=== PATIENT | female | born 1935 | race Two or more races ===

== ENCOUNTER 2017-09-27 19:42 | Inpatient (IN) | payer MEDICARE, MEDICAID ==
--- NOTE | 2017-09-27 22:32 | ED Physician Chart ---
ED Chief Complaint/HPI - Patient Information Date Seen:: 09/27/17 Time Seen:: 21:00 Chief Complaint:: urinary infection History of Present Illness:: location: general quality: urinary infection severity: mild, mod duration; since 09/15 context: [facility] pt with history of urinary infection since 12 days ago. just finished course of nitrofurantoin and reports persistent symptoms. today pt reports persistent dysuria and some lower abdominal discomfort associated with dysuria. when she is not urinating pt says she does not have any abdominal pain. no fever. pt assessed by Dr. Flores at [facility] and based on persistent symptoms in elderly female who may not be able to mount typical immune response, PCP made decision to send pt with persistent symptoms for medical screening exam. on arrival pt with stable vital signs, no tachycardia. on arrival pt with mild intermittent cough observed by physician during exam. pt does not complaint of chest pain or vomiting, or diarrhea. medics transporting the patient report stable vital signs. pt is alert to name and symptoms. pt reports dysuria as only complaint. earlier in the day pt had reported abdominal pain, now says abdominal pain is gone. no flank pain reported. mod factors: none assoc s/s: none hx from [facility] RN, Medic, Dr. Flores. Allergies:: Allergies Allergy/AdvReac Type Severity Reaction Status Date / Time No Known Allergies Allergy Verified 09/27/17 20:34 Vitals:: Vital Signs - 8 hr 09/27/17 19:45 Temp 98.2 F HR 59 RR 18 BP 113/52 O2 Sat % 97 Historian:: Patient, EMS, Other Review:: Nurse's Note Reviewed, EMS run form Reviewed ED Review of Systems - Review of Systems General/Constitutional: No fever, No chills, No diaphoresis Skin: No rash ENT: No nasal drainage Neck: No stiffness Cardio Vascular: No edema Pulmonary: Cough, No wheezing GI: No nausea, No vomiting G/U: Dysuria Molder Apprentice: No abnormal vaginal bleed Hematopoietic: No lymphadenopathy Allergic/Immuno: No angioedema Neurological: No seizure ED Past Medical History - Past Medical History Past Medical History: HTN, DM, CAD, Other (osteoporosis, parkinsons, constipation) Family History: None Social History: Non Smoker, No Alcohol, No Drug Use, , Care Facility Surgical History: None Psychiatricy History: Dementia Medication: Reviewed Family Medical History - Family Member Mother History Unknown: Yes Ethnicity: ED Physical Exam - Physical Examination General/Constitutional: Awake, Alert, No distress (at baseline per medics pt is oriented to name and symptoms only, samoan speaking only.), Non-toxic appearing Head: Atraumatic Eyes: Lids, conjuctiva normal, PERRL, EOMI Skin: Nl inspection ENMT: External ears, nose nl Neck: Nontender, No nuchal rigidity Respiratory: Nl effort/Exclusion, Clear to Auscultation, No Wheeze/Rhonchi/ Rales (crackles bilateral lung base, pt with audible cough on arrival to ER. large airway sounds transmitted to periphery with basilar rales. will obtain CXR) Cardio Vascular: RRR, No murmur, gallop, rubs, NL S1 S2 GI: No tenderness/rebounding/guarding, Normal BS's, Nondistended : No CVA tenderness Extremities: No tenderness or effusion, No edema Neuro/Psych: Normal sensory exam, Normal motor strength, No focal deficits Misc: Normal back, No paraspinal tenderness ED Labs/Radiology/EKG Results - Lab Results Results: Laboratory Tests 09/27/17 09/27/17 09/27/17 22:15 22:57 22:57 WBC 8.7 RBC 3.76 L Hgb 10.8 L Hct 32.4 L MCV 86.2 MCH 28.7 MCHC Differential 33.3 RDW 16.2 Plt Count 308 MPV 8.2 Neutrophils % 67.3 Lymphocytes % 20.7 Monocytes % 8.9 Eosinophils % 2.6 Basophils % 0.5 Sodium Potassium Chloride Carbon Dioxide Anion Gap BUN Creatinine Est GFR ( Amer) Est GFR (Non-Af Amer) BUN/Creatinine Ratio Glucose Whole Bld Lactic Acid 1.11 Calcium Total Bilirubin AST ALT Alkaline Phosphatase Total Protein Albumin Globulin Albumin/Globulin Ratio Urine Source CATH Urine Color YELLOW Urine Clarity HAZY Urine pH 6.0 Ur Specific [place] 1.020 Urine Protein 100 H Urine Glucose (UA) NEGATIVE Urine Ketones NEGATIVE Urine Blood NEGATIVE Urine Nitrate POSITIVE H Urine Bilirubin NEGATIVE Urine Urobilinogen 0.2 Ur Leukocyte Esterase NEGATIVE Urine RBC 0-1 Urine WBC 2-5 Ur Epithelial Cells FEW Amorphous Sediment MODERATE URATES Urine Bacteria MANY 09/27/17 22:57 WBC RBC Hgb Hct MCV MCH MCHC Differential RDW Plt Count MPV Neutrophils % Lymphocytes % Monocytes % Eosinophils % Basophils % Sodium 134 L Potassium 4.0 Chloride 103 Carbon Dioxide 23.2 Anion Gap 11.8 BUN 36 H Creatinine 1.7 H Est GFR ( Amer) TNP Est GFR (Non-Af Amer) TNP BUN/Creatinine Ratio 21.2 Glucose 173 H Whole Bld Lactic Acid Calcium 8.5 L Total Bilirubin 0.3 AST 8 L ALT < 3 L Alkaline Phosphatase 100 Total Protein 6.7 Albumin 3.4 L Globulin 3.3 Albumin/Globulin Ratio 1.0 Urine Source Urine Color Urine Clarity Urine pH Ur Specific [place] Urine Protein Urine Glucose (UA) Urine Ketones Urine Blood Urine Nitrate Urine Bilirubin Urine Urobilinogen Ur Leukocyte Esterase Urine RBC Urine WBC Ur Epithelial Cells Amorphous Sediment Urine Bacteria - Radiology Results Results: CXR normal cardiac silhouette hyperexpanded lung zambrano blunting of right costophrenic angle no acute pneumothorax no acute rib fracture no acute infiltrate ER READ - EKG Interpretations Comments:: EKG NSR [address]BB[address] no acute [address] elevation no acute ST depression normal axis pt with no chest pain. abnormal EKG ER READ ED Assessment - Assessment General Assessment: pt stable while in ER. ED Septic Shock - . Is Septic Shock (SBP<90, OR Lactate>4 mmol\L) present?: No - <6hrs of presentation: Vital Signs: Vital Signs - 8 hr 09/27/17 19:45 Temp 98.2 F HR 59 RR 18 BP 113/52 O2 Sat % 97 ED Reassessment (Disposition) - Reassessment Reassessment:: medical decision making elderly female with persistent urinary infection symptoms after 12 day course of oral antibiotics. this patient is likely unable to mount a typical immune reponse to infection due to advanced age. with persistent complaint of urinary discomfort and pelvic pain it would be prudent to at least place patient in observation, hydrate patient and reassess in am. will advise primary care physician if patient is to be sent back to SNF with persistent symptoms she is at fairly high risk of progression of infection without proper treatment. by placing patient in admission or observation pt can be treated with IV antibiotics for persistent infection prior to development of sepsis. pt case discussed with Dr. Flores. Reassessment Condition:: Unchanged, Improved - Diagnosis Diagnosis:: acute persistent urinary infection pelvic pain - Patient Disposition Discharge/Transfer:: Acute Care w/in this hosp Admitted to:: Med/Surg Admitting Medical Physician:: Hardeep Flores Time:: 00:05 Condition at Disposition:: Stable, Improved
[2017-09-27 22:58] LABS: URINE BILIRUBIN NEGATIVE (NEGATIVE); URINE BLOOD NEGATIVE (NEGATIVE); URINE GLUCOSE (UA) NEGATIVE (NEGATIVE); URINE KETONE NEGATIVE (NEGATIVE); URINE PROTEIN 100 mg/dL (NEGATIVE); URINE UROBILINOGEN 0.2 E.U./dL (0.2 - 1.0)
[2017-09-27 23:06] LABS: URINE COLOR YELLOW
[2017-09-27 23:07] LABS: URINE AMORPHOUS SEDIMENT MODERATE URATES (NONE SEEN); URINE BACTERIA MANY /hpf (NONE SEEN); URINE EPITHELIAL CELLS FEW /lpf (FEW); URINE RBC 0-1 /hpf (0-5)
[2017-09-27 23:11] LABS: % BASOPHILS 0.5 % (0.0-2.0); % EOSINOPHILS 2.6 % (0.0-5.0); % LYMPHOCYTES 20.7 % (20.0-50.0); % MONOCYTES 8.9 % (2.0-10.0); % NEUTROPHILS 67.3 % (40.0-80.0); HEMATOCRIT 32.4 % (41.0-60); HEMOGLOBIN 10.8 gm/dL (12-16); MEAN CELL VOLUME 86.2 fl (81-100); MEAN CORPUSCULAR HEMOGLOBIN 28.7 pg (27.0-31.0); MEAN CORPUSCULAR HGB CONC 33.3 pg (28.0-36.0); MEAN PLATELET VOLUME 8.2 fl; NEUTROPHILE ABSOLUTE 5.9 Th/cmm (1.8-8.0); PLATELET COUNT 308 Th/cmm (150-400); RED BLOOD COUNT 3.76 Mil/cmm (3.80-5.20); RED CELL DISTRIBUTION WIDTH 16.2 % (11.5-20.0); WHITE BLOOD COUNT 8.7 Th/cmm (4.8-10.8)
[2017-09-27 23:28] LABS: ALKALINE PHOSPHATASE 100 U/L (34-104); ANION GAP 11.8 (7.0-16.0); BILIRUBIN,TOTAL 0.3 mg/dL (0.3-1.0); BUN - UREA NITROGEN 36 mg/dL (7-25); BUN/CREATININE RATIO 21.2; CALCIUM SERUM 8.5 mg/dL (8.6-10.3); CARBON DIOXIDE 23.2 mEq/L (21.0-31.0); CHLORIDE 103 mEq/L (98-107); CREATININE - SERUM 1.7 mg/dL (0.6-1.2); GLUCOSE 173 mg/dL (70-105); SGOT 8 U/L (13-39); SODIUM SERUM 134 mEq/L (136-145)
[2017-09-27 23:29] LABS: SGPT/ALT < 3 U/L (7-52)
[2017-09-28] MEDS ORDERED: Maalox 30 mL Cup PO PRN (00:09)
[2017-09-28] MEDS ORDERED: Albuterol Nebulizer 2.5mg/3mL HHN PRN (00:09)
[2017-09-28 01:48] VITALS: BP 135/69
[2017-09-28] MEDS: Sodium Chloride 0.45% 1,000 ML IV SCH ×2 (01:53→16:24)
[2017-09-28] MEDS: INSULIN ASPART, RECOMBINANT 100 UNITS/ML SUBQ SCH ×4 (07:14→22:57)
--- NOTE | 2017-09-28 07:55 | Diagnostic Imaging Report ---
CHEST X-RAY: AP view INDICATION: Cough COMPARISON: None FINDINGS: Chronic lung changes are seen with no focal consolidation or effusions. Heart size is at the upper limits of normal. Atherosclerotic vascular disease noted. Degenerative changes of the spine are noted. IMPRESSION: Chronic lung changes with no focal consolidation identified. Atherosclerotic vascular disease.
[2017-09-28] MEDS: POLYETHYLENE GLYCOL 3350 17 GM PACK PO SCH (08:25)
[2017-09-28] MEDS: Multivitamin w/ Minerals Tab PO SCH (08:25)
[2017-09-28] MEDS: Levetiracetam 500 mg/5mL 5mL UDC PO SCH ×2 (08:26→16:19)
[2017-09-28] MEDS ORDERED: Non-Formulary Item 1 EA (Fluticasone/Salmeterol [Advair 250-50 Diskus] 1 PUFF) INH SCH (09:00)
--- NOTE | 2017-09-28 12:37 | Internal Medicine Prog Note ---
Internal Medicine Subjective - Subjective Service Date: 09/28/17 ([facility] [id number]) Internal Medicine Objective - Results Result Diagrams: 09/27/17 22:57 09/27/17 22:57 Recent Labs: Laboratory Last Values WBC 8.7 Th/cmm (4.8-10.8) 09/27/17 22:57 RBC 3.76 Mil/cmm (3.80-5.20) L 09/27/17 22:57 Hgb 10.8 gm/dL (12-16) L 09/27/17 22:57 Hct 32.4 % (41.0-60) L 09/27/17 22:57 MCV 86.2 fl (81-100) 09/27/17 22:57 MCH 28.7 pg (27.0-31.0) 09/27/17 22:57 MCHC Differential 33.3 pg (28.0-36.0) 09/27/17 22:57 RDW 16.2 % (11.5-20.0) 09/27/17 22:57 Plt Count 308 Th/cmm (150-400) 09/27/17 22:57 MPV 8.2 fl 09/27/17 22:57 Neutrophils % 67.3 % (40.0-80.0) 09/27/17 22:57 Lymphocytes % 20.7 % (20.0-50.0) 09/27/17 22:57 Monocytes % 8.9 % (2.0-10.0) 09/27/17 22:57 Eosinophils % 2.6 % (0.0-5.0) 09/27/17 22:57 Basophils % 0.5 % (0.0-2.0) 09/27/17 22:57 Sodium 134 mEq/L (136-145) L 09/27/17 22:57 Potassium 4.0 mEq/L (3.5-5.1) 09/27/17 22:57 Chloride 103 mEq/L (98-107) 09/27/17 22:57 Carbon Dioxide 23.2 mEq/L (21.0-31.0) 09/27/17 22:57 Anion Gap 11.8 (7.0-16.0) 09/27/17 22:57 BUN 36 mg/dL (7-25) H 09/27/17 22:57 Creatinine 1.7 mg/dL (0.6-1.2) H 09/27/17 22:57 Est GFR ( Amer) TNP 09/27/17 22:57 Est GFR (Non-Af Amer) TNP 09/27/17 22:57 BUN/Creatinine Ratio 21.2 09/27/17 22:57 Glucose 173 mg/dL (70-105) H 09/27/17 22:57 POC Glucose 215 MG/DL (70 - 105) H 09/28/17 11:04 Whole Bld Lactic Acid 1.11 mmol/L (0.60-1.99) 09/27/17 22:57 Calcium 8.5 mg/dL (8.6-10.3) L 09/27/17 22:57 Total Bilirubin 0.3 mg/dL (0.3-1.0) 09/27/17 22:57 AST 8 U/L (13-39) L 09/27/17 22:57 ALT < 3 U/L (7-52) L 09/27/17 22:57 Alkaline Phosphatase 100 U/L (34-104) 09/27/17 22:57 Total Protein 6.7 gm/dL (6.0-8.3) 09/27/17 22:57 Albumin 3.4 gm/dL (3.7-5.3) L 09/27/17 22:57 Globulin 3.3 gm/dL 09/27/17 22:57 Albumin/Globulin Ratio 1.0 (1.0-1.8) 09/27/17 22:57 Urine Source CATH 09/27/17 22:15 Urine Color YELLOW 09/27/17 22:15 Urine Clarity HAZY (CLEAR) 09/27/17 22:15 Urine pH 6.0 (4.6 - 8.0) 09/27/17 22:15 Ur Specific [place] 1.020 (1.005-1.030) 09/27/17 22:15 Urine Protein 100 mg/dL (NEGATIVE) H 09/27/17 22:15 Urine Glucose (UA) NEGATIVE mg/dL (NEGATIVE) 09/27/17 22:15 Urine Ketones NEGATIVE mg/dL (NEGATIVE) 09/27/17 22:15 Urine Blood NEGATIVE (NEGATIVE) 09/27/17 22:15 Urine Nitrate POSITIVE (NEGATIVE) H 09/27/17 22:15 Urine Bilirubin NEGATIVE (NEGATIVE) 09/27/17 22:15 Urine Urobilinogen 0.2 E.U./dL (0.2 - 1.0) 09/27/17 22:15 Ur Leukocyte Esterase NEGATIVE (NEGATIVE) 09/27/17 22:15 Urine RBC 0-1 /hpf (0-5) 09/27/17 22:15 Urine WBC 2-5 /hpf (0-5) 09/27/17 22:15 Ur Epithelial Cells FEW /lpf (FEW) 09/27/17 22:15 Amorphous Sediment MODERATE URATES (NONE SEEN) 09/27/17 22:15 Urine Bacteria MANY /hpf (NONE SEEN) 09/27/17 22:15 - Physical Exam Vitals and I&O: Vital Signs Temp 97.8 F 09/28/17 08:00 Pulse 69 09/28/17 08:26 Resp 18 09/28/17 08:24 BP 130/69 09/28/17 08:26 Pulse Ox 94 09/28/17 08:24 Intake & Output 09/27/17 09/28/17 09/28/17 18:59 06:59 18:59 Intake Total 383.667 Balance 383.667 Weight (lbs) 119 lb 4.8 oz Intake: Intake, IV Amount 383.667 Sodium Chloride 0.45% 1, 333.667 000 ml @ 70 mls/hr IV . [id number] [facility] Rx#:[id number] Active Medications: Current Medications Acetaminophen (Tylenol) 650 mg PO Q4HR PRN PRN Reason: Fever > 101 Stop: 11/27/17 00:06 Al Hydrox/Mg Hydrox/Simethicone (Maalox) 30 ml PO Q6H PRN PRN Reason: Dyspepsia Stop: 11/27/17 00:08 Albuterol Sulfate (Albuterol 2.5mg/3ml Neb Ud) 2.5 mg HHN Q2HRT PRN PRN Reason: Shortness of Breath or Wheeze Stop: 11/27/17 00:08 Amlodipine Besylate (Norvasc) 10 mg PO DAILY [facility] Stop: 11/28/17 08:59 Ascorbic Acid (Vitamin C) 500 mg PO DAILY [facility] Stop: 11/27/17 08:59 Last Admin: 09/28/17 08:26 Dose: 500 mg Aspirin (Ecotrin) 81 mg PO DAILY [facility] Stop: 11/27/17 08:59 Last Admin: 09/28/17 08:26 Dose: 81 mg Carbidopa/Levodopa (Sinemet 25mg-100 Mg) 2 tab PO QID [facility] Stop: 11/27/17 08:59 Last Admin: 09/28/17 08:26 Dose: 2 tab Carvedilol (Coreg) 25 mg PO BID [facility] Stop: 11/27/17 08:59 Last Admin: 09/28/17 08:26 Dose: 25 mg Clopidogrel Bisulfate (Plavix) 75 mg PO DAILY [facility] Stop: 11/27/17 08:59 Last Admin: 09/28/17 08:26 Dose: 75 mg Docusate Sodium (Colace) 100 mg PO BID PRN PRN Reason: BOWEL MNGT Stop: 11/27/17 00:06 Famotidine (Pepcid) 20 mg PO DAILY [facility] Stop: 11/27/17 08:59 Last Admin: 09/28/17 08:26 Dose: 20 mg Heparin Sodium (Porcine) (Heparin) 5,000 units SUBQ Q12HR [facility] Stop: 11/27/17 08:59 Last Admin: 09/28/17 08:26 Dose: 5,000 units Sodium Chloride (Nacl 0.45%) 1,000 mls @ 70 mls/hr IV .[id number] [facility] Stop: 11/27/17 00:14 Last Infusion: 09/28/17 06:39 Dose: 70 mls/hr Cefepime HCl 1 gm/ Dextrose 50 mls @ 100 mls/hr IV Q12HR [facility] Stop: 11/27/17 08:59 Last Admin: 09/28/17 08:25 Dose: 100 mls/hr Insulin Aspart (Novolog) 0 units SUBQ ACHS [facility]IS[facility] PRN Reason: Protocol Stop: 11/27/17 07:29 Last Admin: 09/28/17 12:24 Dose: 2 units Levetiracetam (Keppra) 500 mg PO BID [facility] Stop: 11/27/17 08:59 Last Admin: 09/28/17 08:26 Dose: 500 mg Lorazepam (Ativan) 0.5 mg PO Q6H PRN; Protocol PRN Reason: Anxiety Stop: 11/27/17 00:06 Miscellaneous (Fluticasone/Salmeterol [Advair 250-50 Diskus]) 1 puff INH BID [facility] Stop: 11/27/17 08:59 Miscellaneous (Melatonin [Melatonin]) 3 mg PO HS [facility] Stop: 11/27/17 20:59 Ondansetron HCl (Zofran) 4 mg IV Q8H PRN PRN Reason: Nausea / Vomiting Stop: 11/27/17 00:08 Polyethylene Glycol (Miralax) 17 gm PO DAILY [facility] Stop: 11/27/17 08:59 Last Admin: 09/28/17 08:25 Dose: 17 gm Simvastatin (Zocor) 40 mg PO HS [facility] Stop: 11/27/17 20:59 Internal Medicine Assmt/Plan - Assessment Assessment: ACUTE UTI ACUTE PELVIC PAIN HTN OSTEOPOROSIS CAD HYPONATREMIA PARKINSONS
[2017-09-28] MEDS ORDERED: Probiotic Screen MC PRN (15:43)
--- NOTE | 2017-09-28 16:09 | History & Physical ---
ADMIT DATE: 09/28/2017 CHIEF COMPLAINT: UTI, dysuria and cough. HISTORY OF PRESENT ILLNESS: This is an 82-year-old female who is a [facility] who is [facility] for persistent dysuria associated with lower abdominal discomfort. The patient did not have any fevers at the [facility]. Also patient was diagnosed with acute UTI 12 days ago. The patient just finished a course of nitrofurantoin and still despite finishing the course of antibiotics, the patient still experiences dysuria. For further management, the patient is now admitted to the Med/Surg Unit. PAST MEDICAL HISTORY: Hypertension, diabetes, CAD, osteoporosis, Parkinson's, constipation. FAMILY HISTORY: Noncontributory. SOCIAL HISTORY: The patient is a [facility] resident requiring 24-hour nursing care. SURGICAL HISTORY: None per patient. ALLERGIES: No known drug allergies. REVIEW OF SYSTEMS: GENERAL: Denies fevers, chills. CARDIOVASCULAR: Denies chest pain. RESPIRATORY: Denies shortness of breath. GASTROINTESTINAL: Denies any nausea, vomiting, abdominal pain. GENITOURINARY: Complaints of dysuria. All other systems are reviewed by me and are negative. PHYSICAL EXAMINATION: GENERAL: The patient is an elderly female, awake, alert, in no apparent distress. VITAL SIGNS: Temperature 97.8, heart rate 69, blood pressure 130/69, respirations 22, O2 99%. HEENT: Head normocephalic, atraumatic. NECK: Supple. No mass. LUNGS: Clear rhonchi. HEART: Regular rate and rhythm. ABDOMEN: Soft, nontender. LABORATORY DATA: WBC 8.7, H and H 10.8 and 32.4, platelets 308. Sodium 134, potassium 4.0, BUN 36, creatinine 1.7. Glucose 173. ASSESSMENT: Acute urinary tract infection, acute pelvic pain, diabetes, hypertension, CAD, osteoporosis, Parkinson's, acute renal insufficiency. PLAN: The patient to be admitted to the Med/Surg Unit. We will keep patient on IV fluids for hydration. We will get a renal ultrasound. We will also get a pelvic ultrasound as well. We will monitor the patient's glucose level. The patient to be on sliding scale. We will also keep patient on IV antibiotics of Maxipime. We will continue to monitor the patient. JOB# [id number]
[2017-09-28] MEDS: Lactobacillus Rhamnosus 10 Billion CFU Capsule PO SCH (16:23)
[2017-09-28] MEDS ORDERED: Non-Formulary Item 1 EA (Melatonin [Melatonin] 3 MG) PO SCH (21:00)
[2017-09-29 05:58] LABS: % BASOPHILS 2.8 % (0.0-2.0); % EOSINOPHILS 2.6 % (0.0-5.0); % LYMPHOCYTES 19.3 % (20.0-50.0); % MONOCYTES 4.5 % (2.0-10.0); % NEUTROPHILS 70.8 % (40.0-80.0); HEMATOCRIT 32.8 % (41.0-60); HEMOGLOBIN 10.4 gm/dL (12-16); MEAN CELL VOLUME 86.5 fl (81-100); MEAN CORPUSCULAR HEMOGLOBIN 27.4 pg (27.0-31.0); MEAN CORPUSCULAR HGB CONC 31.6 pg (28.0-36.0); MEAN PLATELET VOLUME 8.3 fl; NEUTROPHILE ABSOLUTE 6.3 Th/cmm (1.8-8.0); PLATELET COUNT 215 Th/cmm (150-400); RED BLOOD COUNT 3.79 Mil/cmm (3.80-5.20); RED CELL DISTRIBUTION WIDTH 16.1 % (11.5-20.0); WHITE BLOOD COUNT 8.8 Th/cmm (4.8-10.8)
[2017-09-29 06:19] LABS: ANION GAP 10.4 (7.0-16.0); BUN - UREA NITROGEN 34 mg/dL (7-25); BUN/CREATININE RATIO 26.2; CALCIUM SERUM 8.5 mg/dL (8.6-10.3); CARBON DIOXIDE 21.8 mEq/L (21.0-31.0); CHLORIDE 105 mEq/L (98-107); CREATININE - SERUM 1.3 mg/dL (0.6-1.2); GLUCOSE 154 mg/dL (70-105); POTASSIUM SERUM 4.2 mEq/L (3.5-5.1); SODIUM SERUM 133 mEq/L (136-145)
[2017-09-29] MEDS: INSULIN ASPART, RECOMBINANT 100 UNITS/ML SUBQ SCH ×4 (07:02→21:23)
--- NOTE | 2017-09-29 07:49 | Diagnostic Imaging Report ---
Exam: Renal ultrasound HISTORY: Pain Findings: Real-time ultrasound examination of kidneys bilaterally was performed multiple planes Right kidney measures 10.1 x 4.3 x 5.5 cm multiple small cysts are noted largest one measuring 1.5 cm in diameter Nonobstructing calculus is noted in the right middle pole measuring 6 mm The left kidney measures 9.3 x 4.9 x 4.8 cm diameter with multiple cysts, largest one measuring 3.8 x 4 cm diameter. There is no evidence of obstructive uropathy. Uterine bladder is intact. IMPRESSION: Bilateral renal cysts. Nonobstructing 6 mm calcification right kidney.
--- NOTE | 2017-09-29 07:50 | Diagnostic Imaging Report ---
Exam: Pelvic ultrasound HISTORY: Pain Findings: Real-time ultrasound examination of pelvis performed multiple planes. The study demonstrates nonvisualization of uterus and ovaries. CT examination the pelvis might be helpful. Urinary bladder is intact. IMPRESSION: Extremely limited ultrasound examination of pelvis fail to demonstrate ovaries and uterus. CT examination pelvis and helpful.
[2017-09-29] MEDS: Lactobacillus Rhamnosus 10 Billion CFU Capsule PO SCH (09:39)
[2017-09-29] MEDS: Multivitamin w/ Minerals Tab PO SCH (09:39)
[2017-09-29] MEDS: POLYETHYLENE GLYCOL 3350 17 GM PACK PO SCH (09:39)
[2017-09-29] MEDS: Levetiracetam 500 mg/5mL 5mL UDC PO SCH ×2 (09:39→17:27)
--- NOTE | 2017-09-29 11:41 | Internal Medicine Prog Note ---
Internal Medicine Subjective - Subjective Patient seen and examined:: with staff Patient is:: awake, verbal Per staff patient has:: tolerating meds Internal Medicine Objective - Results Result Diagrams: 09/29/17 05:34 09/29/17 05:34 Recent Labs: Laboratory Last Values WBC 8.8 Th/cmm (4.8-10.8) 09/29/17 05:34 RBC 3.79 Mil/cmm (3.80-5.20) L 09/29/17 05:34 Hgb 10.4 gm/dL (12-16) L 09/29/17 05:34 Hct 32.8 % (41.0-60) L 09/29/17 05:34 MCV 86.5 fl (81-100) 09/29/17 05:34 MCH 27.4 pg (27.0-31.0) 09/29/17 05:34 MCHC Differential 31.6 pg (28.0-36.0) 09/29/17 05:34 RDW 16.1 % (11.5-20.0) 09/29/17 05:34 Plt Count 215 Th/cmm (150-400) D 09/29/17 05:34 MPV 8.3 fl 09/29/17 05:34 Neutrophils % 70.8 % (40.0-80.0) 09/29/17 05:34 Lymphocytes % 19.3 % (20.0-50.0) L 09/29/17 05:34 Monocytes % 4.5 % (2.0-10.0) 09/29/17 05:34 Eosinophils % 2.6 % (0.0-5.0) 09/29/17 05:34 Basophils % 2.8 % (0.0-2.0) H 09/29/17 05:34 Sodium 133 mEq/L (136-145) L 09/29/17 05:34 Potassium 4.2 mEq/L (3.5-5.1) 09/29/17 05:34 Chloride 105 mEq/L (98-107) 09/29/17 05:34 Carbon Dioxide 21.8 mEq/L (21.0-31.0) 09/29/17 05:34 Anion Gap 10.4 (7.0-16.0) 09/29/17 05:34 BUN 34 mg/dL (7-25) H 09/29/17 05:34 Creatinine 1.3 mg/dL (0.6-1.2) H 09/29/17 05:34 Est GFR ( Amer) TNP 09/29/17 05:34 Est GFR (Non-Af Amer) TNP 09/29/17 05:34 BUN/Creatinine Ratio 26.2 09/29/17 05:34 Glucose 154 mg/dL (70-105) H 09/29/17 05:34 POC Glucose 189 MG/DL (70 - 105) H 09/29/17 06:55 Whole Bld Lactic Acid 1.11 mmol/L (0.60-1.99) 09/27/17 22:57 Calcium 8.5 mg/dL (8.6-10.3) L 09/29/17 05:34 Total Bilirubin 0.3 mg/dL (0.3-1.0) 09/27/17 22:57 AST 8 U/L (13-39) L 09/27/17 22:57 ALT < 3 U/L (7-52) L 09/27/17 22:57 Alkaline Phosphatase 100 U/L (34-104) 09/27/17 22:57 Total Protein 6.7 gm/dL (6.0-8.3) 09/27/17 22:57 Albumin 3.4 gm/dL (3.7-5.3) L 09/27/17 22:57 Globulin 3.3 gm/dL 09/27/17 22:57 Albumin/Globulin Ratio 1.0 (1.0-1.8) 09/27/17 22:57 Urine Source CATH 09/27/17 22:15 Urine Color YELLOW 09/27/17 22:15 Urine Clarity HAZY (CLEAR) 09/27/17 22:15 Urine pH 6.0 (4.6 - 8.0) 09/27/17 22:15 Ur Specific [place] 1.020 (1.005-1.030) 09/27/17 22:15 Urine Protein 100 mg/dL (NEGATIVE) H 09/27/17 22:15 Urine Glucose (UA) NEGATIVE mg/dL (NEGATIVE) 09/27/17 22:15 Urine Ketones NEGATIVE mg/dL (NEGATIVE) 09/27/17 22:15 Urine Blood NEGATIVE (NEGATIVE) 09/27/17 22:15 Urine Nitrate POSITIVE (NEGATIVE) H 09/27/17 22:15 Urine Bilirubin NEGATIVE (NEGATIVE) 09/27/17 22:15 Urine Urobilinogen 0.2 E.U./dL (0.2 - 1.0) 09/27/17 22:15 Ur Leukocyte Esterase NEGATIVE (NEGATIVE) 09/27/17 22:15 Urine RBC 0-1 /hpf (0-5) 09/27/17 22:15 Urine WBC 2-5 /hpf (0-5) 09/27/17 22:15 Ur Epithelial Cells FEW /lpf (FEW) 09/27/17 22:15 Amorphous Sediment MODERATE URATES (NONE SEEN) 09/27/17 22:15 Urine Bacteria MANY /hpf (NONE SEEN) 09/27/17 22:15 - Physical Exam Vitals and I&O: Vital Signs Temp 97.0 F 09/29/17 08:00 Pulse 60 09/29/17 09:38 Resp 18 09/29/17 08:00 BP 141/70 09/29/17 09:38 Pulse Ox 98 09/29/17 08:00 Intake & Output 09/28/17 09/29/17 09/29/17 18:59 06:59 18:59 Intake Total 879.666 886.667 Balance 879.666 886.667 Weight (lbs) 125 lb Intake: Intake, IV Amount 879.666 886.667 Cefepime 1 gm In Dextrose 50 50 5% 50 ml @ 100 mls/hr IV Q12HR [facility] Rx#:[id number] Sodium Chloride 0.45% 1, 829.666 836.667 000 ml @ 70 mls/hr IV . [id number] [facility] Rx#:[id number] Active Medications: Current Medications Acetaminophen (Tylenol) 650 mg PO Q4HR PRN PRN Reason: Fever > 101 Stop: 11/27/17 00:06 Al Hydrox/Mg Hydrox/Simethicone (Maalox) 30 ml PO Q6H PRN PRN Reason: Dyspepsia Stop: 11/27/17 00:08 Albuterol Sulfate (Albuterol 2.5mg/3ml Neb Ud) 2.5 mg HHN Q2HRT PRN PRN Reason: Shortness of Breath or Wheeze Stop: 11/27/17 00:08 Amlodipine Besylate (Norvasc) 10 mg PO DAILY [facility] Stop: 11/28/17 08:59 Last Admin: 09/29/17 09:38 Dose: 10 mg Ascorbic Acid (Vitamin C) 500 mg PO DAILY [facility] Stop: 11/27/17 08:59 Last Admin: 09/29/17 09:38 Dose: 500 mg Aspirin (Ecotrin) 81 mg PO DAILY [facility] Stop: 11/27/17 08:59 Last Admin: 09/29/17 09:39 Dose: 81 mg Carbidopa/Levodopa (Sinemet 25mg-100 Mg) 2 tab PO QID [facility] Stop: 11/27/17 08:59 Last Admin: 09/29/17 09:38 Dose: 2 tab Carvedilol (Coreg) 25 mg PO BID [facility] Stop: 11/27/17 08:59 Last Admin: 09/29/17 09:37 Dose: 25 mg Clopidogrel Bisulfate (Plavix) 75 mg PO DAILY [facility] Stop: 11/27/17 08:59 Last Admin: 09/29/17 09:39 Dose: 75 mg Docusate Sodium (Colace) 100 mg PO BID PRN PRN Reason: BOWEL MNGT Stop: 11/27/17 00:06 Famotidine (Pepcid) 20 mg PO DAILY [facility] Stop: 11/27/17 08:59 Last Admin: 09/29/17 09:37 Dose: 20 mg Heparin Sodium (Porcine) (Heparin) 5,000 units SUBQ Q12HR [facility] Stop: 11/27/17 08:59 Last Admin: 09/29/17 09:39 Dose: 5,000 units Sodium Chloride (Nacl 0.45%) 1,000 mls @ 70 mls/hr IV .[id number] [facility] Stop: 11/27/17 00:14 Last Infusion: 09/29/17 07:00 Dose: Infused Cefepime HCl 1 gm/ Dextrose 50 mls @ 100 mls/hr IV Q12HR [facility] Stop: 11/27/17 08:59 Last Admin: 09/29/17 09:39 Dose: 100 mls/hr Insulin Aspart (Novolog) 0 units SUBQ ACHS [facility] PRN Reason: Protocol Stop: 11/27/17 07:29 Last Admin: 09/29/17 07:02 Dose: Not Given Lactobacillus Rhamnosus (Culturelle) 1 each PO DAILY [facility] Stop: 11/27/17 15:59 Last Admin: 09/29/17 09:39 Dose: 1 each Levetiracetam (Keppra) 500 mg PO BID [facility] Stop: 11/27/17 08:59 Last Admin: 09/29/17 09:39 Dose: 500 mg Lorazepam (Ativan) 0.5 mg PO Q6H PRN; Protocol PRN Reason: Anxiety Stop: 11/27/17 00:06 Miscellaneous (Fluticasone/Salmeterol [Advair 250-50 Diskus]) 1 puff INH BID [facility] Stop: 11/27/17 08:59 Miscellaneous (Melatonin [Melatonin]) 3 mg PO HS [facility] Stop: 11/27/17 20:59 Miscellaneous (Probiotic Screen) 1 ea [facility] PRN PRN PRN Reason: PROTOCOL Stop: 11/27/17 15:42 Ondansetron HCl (Zofran) 4 mg IV Q8H PRN PRN Reason: Nausea / Vomiting Stop: 11/27/17 00:08 Polyethylene Glycol (Miralax) 17 gm PO DAILY [facility] Stop: 11/27/17 08:59 Last Admin: 09/29/17 09:39 Dose: 17 gm Simvastatin (Zocor) 40 mg PO HS [facility] Stop: 11/27/17 20:59 Last Admin: 09/28/17 22:15 Dose: 40 mg General: weak, alert HEENT: NC/AT, PERRLA Neck: Supple Lungs: CTAB Cardiovascular: RRR, Normal S1, Normal S2, without murmur Abdomen: soft, non-tender, non-distended, positive bowel sound Neurological: alert Internal Medicine Assmt/Plan - Assessment Assessment: ACUTE UTI ACUTE PELVIC PAIN HTN OSTEOPOROSIS CAD HYPONATREMIA [place]IN[place]S - Plan Plan: continue ivabx pain mgmt ivf for hydration am labs continue current plan of care
[2017-09-29] MEDS: Sodium Chloride 0.45% 1,000 ML IV SCH ×2 (12:19→23:20)
[2017-09-29] MEDS ORDERED: Meropenem 500 MG in Sodium Chloride 0.9% 100 ML IV SCH (14:00)
[2017-09-29] MEDS: Meropenem 500 MG in Sodium Chloride 0.9% 50 ML IV SCH ×2 (15:47→23:16)
[2017-09-30] MEDS: Meropenem 500 MG in Sodium Chloride 0.9% 50 ML IV SCH ×2 (06:12→17:40)
[2017-09-30] MEDS: INSULIN ASPART, RECOMBINANT 100 UNITS/ML SUBQ SCH ×3 (06:41→17:08)
[2017-09-30 06:48] LABS: % BASOPHILS 0.5 % (0.0-2.0); % LYMPHOCYTES 21.7 % (20.0-50.0); % MONOCYTES 8.4 % (2.0-10.0); % NEUTROPHILS 65.4 % (40.0-80.0); HEMATOCRIT 29.9 % (41.0-60); HEMOGLOBIN 9.8 gm/dL (12-16); MEAN CELL VOLUME 85.4 fl (81-100); MEAN CORPUSCULAR HEMOGLOBIN 28.1 pg (27.0-31.0); MEAN CORPUSCULAR HGB CONC 32.9 pg (28.0-36.0); MEAN PLATELET VOLUME 7.9 fl; NEUTROPHILE ABSOLUTE 4.7 Th/cmm (1.8-8.0); RED CELL DISTRIBUTION WIDTH 15.6 % (11.5-20.0); WHITE BLOOD COUNT 7.2 Th/cmm (4.8-10.8)
[2017-09-30 07:03] LABS: PLATELET COUNT 275 Th/cmm (150-400)
[2017-09-30 07:11] LABS: ANION GAP 8.7 (7.0-16.0); BUN - UREA NITROGEN 29 mg/dL (7-25); BUN/CREATININE RATIO 24.2; CALCIUM SERUM 8.5 mg/dL (8.6-10.3); CARBON DIOXIDE 22.3 mEq/L (21.0-31.0); CHLORIDE 107 mEq/L (98-107); CREATININE - SERUM 1.2 mg/dL (0.6-1.2); GLUCOSE 146 mg/dL (70-105); SODIUM SERUM 134 mEq/L (136-145)
[2017-09-30] MEDS: Levetiracetam 500 mg/5mL 5mL UDC PO SCH ×2 (08:44→17:03)
[2017-09-30] MEDS: POLYETHYLENE GLYCOL 3350 17 GM PACK PO SCH (08:44)
[2017-09-30] MEDS: Multivitamin w/ Minerals Tab PO SCH (08:46)
[2017-09-30] MEDS: Lactobacillus Rhamnosus 10 Billion CFU Capsule PO SCH (08:46)
--- NOTE | 2017-09-30 11:25 | Internal Medicine Prog Note ---
Internal Medicine Subjective - Subjective Service Date: 09/30/17 Patient is:: awake, verbal Per staff patient has:: tolerating meds Internal Medicine Objective - Results Result Diagrams: 09/30/17 06:35 09/30/17 06:35 Recent Labs: Laboratory Last Values WBC 7.2 Th/cmm (4.8-10.8) 09/30/17 06:35 RBC 3.50 Mil/cmm (3.80-5.20) L 09/30/17 06:35 Hgb 9.8 gm/dL (12-16) L 09/30/17 06:35 Hct 29.9 % (41.0-60) L 09/30/17 06:35 MCV 85.4 fl (81-100) 09/30/17 06:35 MCH 28.1 pg (27.0-31.0) 09/30/17 06:35 MCHC Differential 32.9 pg (28.0-36.0) 09/30/17 06:35 RDW 15.6 % (11.5-20.0) 09/30/17 06:35 Plt Count 275 Th/cmm (150-400) D 09/30/17 06:35 MPV 7.9 fl 09/30/17 06:35 Neutrophils % 65.4 % (40.0-80.0) 09/30/17 06:35 Lymphocytes % 21.7 % (20.0-50.0) 09/30/17 06:35 Monocytes % 8.4 % (2.0-10.0) 09/30/17 06:35 Eosinophils % 4.0 % (0.0-5.0) 09/30/17 06:35 Basophils % 0.5 % (0.0-2.0) 09/30/17 06:35 Sodium 134 mEq/L (136-145) L 09/30/17 06:35 Potassium 4.0 mEq/L (3.5-5.1) 09/30/17 06:35 Chloride 107 mEq/L (98-107) 09/30/17 06:35 Carbon Dioxide 22.3 mEq/L (21.0-31.0) 09/30/17 06:35 Anion Gap 8.7 (7.0-16.0) 09/30/17 06:35 BUN 29 mg/dL (7-25) H 09/30/17 06:35 Creatinine 1.2 mg/dL (0.6-1.2) 09/30/17 06:35 Est GFR ( Amer) TNP 09/30/17 06:35 Est GFR (Non-Af Amer) TNP 09/30/17 06:35 BUN/Creatinine Ratio 24.2 09/30/17 06:35 Glucose 146 mg/dL (70-105) H 09/30/17 06:35 POC Glucose 142 MG/DL (70 - 105) H 09/30/17 06:40 Whole Bld Lactic Acid 1.11 mmol/L (0.60-1.99) 09/27/17 22:57 Calcium 8.5 mg/dL (8.6-10.3) L 09/30/17 06:35 Total Bilirubin 0.3 mg/dL (0.3-1.0) 09/27/17 22:57 AST 8 U/L (13-39) L 09/27/17 22:57 ALT < 3 U/L (7-52) L 09/27/17 22:57 Alkaline Phosphatase 100 U/L (34-104) 09/27/17 22:57 Total Protein 6.7 gm/dL (6.0-8.3) 09/27/17 22:57 Albumin 3.4 gm/dL (3.7-5.3) L 09/27/17 22:57 Globulin 3.3 gm/dL 09/27/17 22:57 Albumin/Globulin Ratio 1.0 (1.0-1.8) 09/27/17 22:57 Urine Source CATH 09/27/17 22:15 Urine Color YELLOW 09/27/17 22:15 Urine Clarity HAZY (CLEAR) 09/27/17 22:15 Urine pH 6.0 (4.6 - 8.0) 09/27/17 22:15 Ur Specific [place] 1.020 (1.005-1.030) 09/27/17 22:15 Urine Protein 100 mg/dL (NEGATIVE) H 09/27/17 22:15 Urine Glucose (UA) NEGATIVE mg/dL (NEGATIVE) 09/27/17 22:15 Urine Ketones NEGATIVE mg/dL (NEGATIVE) 09/27/17 22:15 Urine Blood NEGATIVE (NEGATIVE) 09/27/17 22:15 Urine Nitrate POSITIVE (NEGATIVE) H 09/27/17 22:15 Urine Bilirubin NEGATIVE (NEGATIVE) 09/27/17 22:15 Urine Urobilinogen 0.2 E.U./dL (0.2 - 1.0) 09/27/17 22:15 Ur Leukocyte Esterase NEGATIVE (NEGATIVE) 09/27/17 22:15 Urine RBC 0-1 /hpf (0-5) 09/27/17 22:15 Urine WBC 2-5 /hpf (0-5) 09/27/17 22:15 Ur Epithelial Cells FEW /lpf (FEW) 09/27/17 22:15 Amorphous Sediment MODERATE URATES (NONE SEEN) 09/27/17 22:15 Urine Bacteria MANY /hpf (NONE SEEN) 09/27/17 22:15 - Physical Exam Vitals and I&O: Vital Signs Temp 99.0 F 09/30/17 08:00 Pulse 60 09/30/17 08:55 Resp 18 09/30/17 08:55 BP 131/64 09/30/17 08:45 Pulse Ox 97 09/30/17 08:55 Intake & Output 09/29/17 09/30/17 09/30/17 18:59 06:59 18:59 Intake Total 8713.907 2945 Balance 7206.065 4845 Weight (lbs) 125 lb 129 lb 4 oz Intake: Intake, IV Amount 452.578 2522 Cefepime 1 gm In Dextrose 50 5% 50 ml @ 100 mls/hr IV Q12HR [facility] Rx#:[id number] Meropenem 500 mg In 50 50 Sodium Chloride 0.9% 50 ml @ 100 mls/hr IV Q8H [facility] Rx#:[id number] Sodium Chloride 0.45% 1, 1000 000 ml @ 100 mls/hr IV . Q10H [facility] Rx#:[id number] Sodium Chloride 0.45% 1, 836.667 000 ml @ 70 mls/hr IV . [id number] [facility] Rx#:[id number] Oral 800 Other: # Voids 4 3 # Bowel Movements 1 Active Medications: Current Medications Acetaminophen (Tylenol) 650 mg PO Q4HR PRN PRN Reason: Fever > 101 Stop: 11/27/17 00:06 Al Hydrox/Mg Hydrox/Simethicone (Maalox) 30 ml PO Q6H PRN PRN Reason: Dyspepsia Stop: 11/27/17 00:08 Albuterol Sulfate (Albuterol 2.5mg/3ml Neb Ud) 2.5 mg HHN Q2HRT PRN PRN Reason: Shortness of Breath or Wheeze Stop: 11/27/17 00:08 Albuterol Sulfate (Albuterol 2.5mg/3ml Neb Ud) 2.5 mg HHN Q6HRT [facility] Stop: 11/29/17 12:59 Amlodipine Besylate (Norvasc) 10 mg PO DAILY [facility] Stop: 11/28/17 08:59 Last Admin: 09/30/17 08:45 Dose: 10 mg Ascorbic Acid (Vitamin C) 500 mg PO DAILY [facility] Stop: 11/27/17 08:59 Last Admin: 09/30/17 08:46 Dose: 500 mg Aspirin (Ecotrin) 81 mg PO DAILY [facility] Stop: 11/27/17 08:59 Last Admin: 09/30/17 08:45 Dose: 81 mg Budesonide (Pulmicort) 0.5 mg HHN BIDRT [facility] Stop: 11/29/17 12:59 Carbidopa/Levodopa (Sinemet 25mg-100 Mg) 2 tab PO QID [facility] Stop: 11/27/17 08:59 Last Admin: 09/30/17 08:45 Dose: 2 tab Carvedilol (Coreg) 25 mg PO BID [facility] Stop: 11/27/17 08:59 Last Admin: 09/30/17 08:45 Dose: 25 mg Clopidogrel Bisulfate (Plavix) 75 mg PO DAILY [facility] Stop: 11/27/17 08:59 Last Admin: 09/30/17 08:46 Dose: 75 mg Docusate Sodium (Colace) 100 mg PO BID PRN PRN Reason: BOWEL MNGT Stop: 11/27/17 00:06 Famotidine (Pepcid) 20 mg PO DAILY [facility] Stop: 11/27/17 08:59 Last Admin: 09/30/17 08:46 Dose: 20 mg Heparin Sodium (Porcine) (Heparin) 5,000 units SUBQ Q12HR [facility] Stop: 11/27/17 08:59 Last Admin: 09/30/17 08:44 Dose: 5,000 units Sodium Chloride (Nacl 0.45%) 1,000 mls @ 100 mls/hr IV .Q10H [facility] Stop: 11/28/17 11:40 Last Admin: 09/29/17 23:20 Dose: 100 mls/hr Meropenem 500 mg/ Sodium (Chloride) 50 mls @ 100 mls/hr IV Q8H [facility] Stop: 11/28/17 14:59 Last Admin: 09/30/17 06:12 Dose: 100 mls/hr Insulin Aspart (Novolog) 0 units SUBQ ACHS [facility] PRN Reason: Protocol Stop: 11/27/17 07:29 Last Admin: 09/30/17 06:41 Dose: Not Given Lactobacillus Rhamnosus (Culturelle) 1 each PO DAILY [facility] Stop: 11/27/17 15:59 Last Admin: 09/30/17 08:46 Dose: 1 each Levetiracetam (Keppra) 500 mg PO BID [facility] Stop: 11/27/17 08:59 Last Admin: 09/30/17 08:44 Dose: 500 mg Lorazepam (Ativan) 0.5 mg PO Q6H PRN; Protocol PRN Reason: Anxiety Stop: 11/27/17 00:06 Last Admin: 09/29/17 13:54 Dose: 0.5 mg Miscellaneous (Probiotic Screen) 1 ea [facility] PRN PRN PRN Reason: PROTOCOL Stop: 11/27/17 15:42 Ondansetron HCl (Zofran) 4 mg IV Q8H PRN PRN Reason: Nausea / Vomiting Stop: 11/27/17 00:08 Polyethylene Glycol (Miralax) 17 gm PO DAILY [facility] Stop: 11/27/17 08:59 Last Admin: 09/30/17 08:44 Dose: 17 gm Simvastatin (Zocor) 40 mg PO HS [facility] Stop: 11/27/17 20:59 Last Admin: 09/29/17 20:55 Dose: 40 mg General: weak, alert HEENT: NC/AT, PERRLA Neck: Supple Lungs: CTAB Cardiovascular: RRR, Normal S1, Normal S2, without murmur Abdomen: soft, non-tender, non-distended, positive bowel sound Neurological: alert Internal Medicine Assmt/Plan - Assessment Assessment: ACUTE UTI ACUTE PELVIC PAIN HTN OSTEOPOROSIS CAD HYPONATREMIA [place]INSONS - Plan Plan: dc planning in am continue ivabx pain mgmt ivf for hydration am labs continue current plan of care
[2017-09-30] MEDS ORDERED: Budesonide 0.5 Mg/2 mL Ud HHN SCH (13:00)
[2017-09-30] MEDS ORDERED: Albuterol Nebulizer 2.5mg/3mL HHN SCH (13:00)
[2017-10-01] MEDS: INSULIN ASPART, RECOMBINANT 100 UNITS/ML SUBQ SCH ×3 (00:02→11:52)
[2017-10-01] MEDS: Meropenem 500 MG in Sodium Chloride 0.9% 50 ML IV SCH (06:08)
[2017-10-01 06:14] LABS: % BASOPHILS 0.3 % (0.0-2.0); % EOSINOPHILS 3.8 % (0.0-5.0); % LYMPHOCYTES 20.7 % (20.0-50.0); % MONOCYTES 9.2 % (2.0-10.0); HEMATOCRIT 29.8 % (41.0-60); HEMOGLOBIN 9.8 gm/dL (12-16); MEAN CELL VOLUME 86.6 fl (81-100); MEAN CORPUSCULAR HEMOGLOBIN 28.5 pg (27.0-31.0); MEAN CORPUSCULAR HGB CONC 32.9 pg (28.0-36.0); MEAN PLATELET VOLUME 8.6 fl; NEUTROPHILE ABSOLUTE 4.9 Th/cmm (1.8-8.0); PLATELET COUNT 251 Th/cmm (150-400); RED BLOOD COUNT 3.45 Mil/cmm (3.80-5.20); RED CELL DISTRIBUTION WIDTH 15.9 % (11.5-20.0); WHITE BLOOD COUNT 7.4 Th/cmm (4.8-10.8)
[2017-10-01 06:42] LABS: ANION GAP 10.8 (7.0-16.0); BUN - UREA NITROGEN 36 mg/dL (7-25); BUN/CREATININE RATIO 25.7; CALCIUM SERUM 8.2 mg/dL (8.6-10.3); CARBON DIOXIDE 21.3 mEq/L (21.0-31.0); CHLORIDE 105 mEq/L (98-107); CREATININE - SERUM 1.4 mg/dL (0.6-1.2); GLUCOSE 152 mg/dL (70-105); POTASSIUM SERUM 4.1 mEq/L (3.5-5.1); SODIUM SERUM 133 mEq/L (136-145)
[2017-10-01] MEDS: POLYETHYLENE GLYCOL 3350 17 GM PACK PO SCH (09:52)
[2017-10-01] MEDS: Multivitamin w/ Minerals Tab PO SCH (09:52)
[2017-10-01] MEDS: Levetiracetam 500 mg/5mL 5mL UDC PO SCH (09:52)
--- NOTE | 2017-10-01 11:22 | Internal Medicine Prog Note ---
Internal Medicine Subjective - Subjective Service Date: 10/01/17 Patient is:: awake, verbal Per staff patient has:: tolerating meds Internal Medicine Objective - Results Result Diagrams: 10/01/17 05:45 10/01/17 05:45 Recent Labs: Laboratory Last Values WBC 7.4 Th/cmm (4.8-10.8) 10/01/17 05:45 RBC 3.45 Mil/cmm (3.80-5.20) L 10/01/17 05:45 Hgb 9.8 gm/dL (12-16) L 10/01/17 05:45 Hct 29.8 % (41.0-60) L 10/01/17 05:45 MCV 86.6 fl (81-100) 10/01/17 05:45 MCH 28.5 pg (27.0-31.0) 10/01/17 05:45 MCHC Differential 32.9 pg (28.0-36.0) 10/01/17 05:45 RDW 15.9 % (11.5-20.0) 10/01/17 05:45 Plt Count 251 Th/cmm (150-400) 10/01/17 05:45 MPV 8.6 fl 10/01/17 05:45 Neutrophils % 66.0 % (40.0-80.0) 10/01/17 05:45 Lymphocytes % 20.7 % (20.0-50.0) 10/01/17 05:45 Monocytes % 9.2 % (2.0-10.0) 10/01/17 05:45 Eosinophils % 3.8 % (0.0-5.0) 10/01/17 05:45 Basophils % 0.3 % (0.0-2.0) 10/01/17 05:45 Sodium 133 mEq/L (136-145) L 10/01/17 05:45 Potassium 4.1 mEq/L (3.5-5.1) 10/01/17 05:45 Chloride 105 mEq/L (98-107) 10/01/17 05:45 Carbon Dioxide 21.3 mEq/L (21.0-31.0) 10/01/17 05:45 Anion Gap 10.8 (7.0-16.0) 10/01/17 05:45 BUN 36 mg/dL (7-25) H 10/01/17 05:45 Creatinine 1.4 mg/dL (0.6-1.2) H 10/01/17 05:45 Est GFR ( Amer) TNP 10/01/17 05:45 Est GFR (Non-Af Amer) TNP 10/01/17 05:45 BUN/Creatinine Ratio 25.7 10/01/17 05:45 Glucose 152 mg/dL (70-105) H 10/01/17 05:45 POC Glucose 149 MG/DL (70 - 105) H 10/01/17 06:25 Whole Bld Lactic Acid 1.11 mmol/L (0.60-1.99) 09/27/17 22:57 Calcium 8.2 mg/dL (8.6-10.3) L 10/01/17 05:45 Total Bilirubin 0.3 mg/dL (0.3-1.0) 09/27/17 22:57 AST 8 U/L (13-39) L 09/27/17 22:57 ALT < 3 U/L (7-52) L 09/27/17 22:57 Alkaline Phosphatase 100 U/L (34-104) 09/27/17 22:57 Total Protein 6.7 gm/dL (6.0-8.3) 09/27/17 22:57 Albumin 3.4 gm/dL (3.7-5.3) L 09/27/17 22:57 Globulin 3.3 gm/dL 09/27/17 22:57 Albumin/Globulin Ratio 1.0 (1.0-1.8) 09/27/17 22:57 Urine Source CATH 09/27/17 22:15 Urine Color YELLOW 09/27/17 22:15 Urine Clarity HAZY (CLEAR) 09/27/17 22:15 Urine pH 6.0 (4.6 - 8.0) 09/27/17 22:15 Ur Specific [place] 1.020 (1.005-1.030) 09/27/17 22:15 Urine Protein 100 mg/dL (NEGATIVE) H 09/27/17 22:15 Urine Glucose (UA) NEGATIVE mg/dL (NEGATIVE) 09/27/17 22:15 Urine Ketones NEGATIVE mg/dL (NEGATIVE) 09/27/17 22:15 Urine Blood NEGATIVE (NEGATIVE) 09/27/17 22:15 Urine Nitrate POSITIVE (NEGATIVE) H 09/27/17 22:15 Urine Bilirubin NEGATIVE (NEGATIVE) 09/27/17 22:15 Urine Urobilinogen 0.2 E.U./dL (0.2 - 1.0) 09/27/17 22:15 Ur Leukocyte Esterase NEGATIVE (NEGATIVE) 09/27/17 22:15 Urine RBC 0-1 /hpf (0-5) 09/27/17 22:15 Urine WBC 2-5 /hpf (0-5) 09/27/17 22:15 Ur Epithelial Cells FEW /lpf (FEW) 09/27/17 22:15 Amorphous Sediment MODERATE URATES (NONE SEEN) 09/27/17 22:15 Urine Bacteria MANY /hpf (NONE SEEN) 09/27/17 22:15 - Physical Exam Vitals and I&O: Vital Signs Temp 98 F 10/01/17 04:00 Pulse 63 10/01/17 09:32 Resp 19 10/01/17 04:00 BP 129/69 10/01/17 09:32 Pulse Ox 97 10/01/17 04:00 Intake & Output 09/30/17 10/01/17 10/01/17 18:59 06:59 18:59 Intake Total 850 200 Balance 850 200 Weight (lbs) 129 lb 4 oz 130 lb Intake: Intake, IV Amount 50 50 Meropenem 500 mg In 50 50 Sodium Chloride 0.9% 50 ml @ 100 mls/hr IV Q12H [facility] Rx#:[id number] Oral 800 150 Other: # Voids 4 2 # Bowel Movements 0 0 Active Medications: Current Medications Acetaminophen (Tylenol) 650 mg PO Q4HR PRN PRN Reason: Fever > 101 Stop: 11/27/17 00:06 Al Hydrox/Mg Hydrox/Simethicone (Maalox) 30 ml PO Q6H PRN PRN Reason: Dyspepsia Stop: 11/27/17 00:08 Albuterol Sulfate (Albuterol 2.5mg/3ml Neb Ud) 2.5 mg HHN Q2HRT PRN PRN Reason: Shortness of Breath or Wheeze Stop: 11/27/17 00:08 Albuterol Sulfate (Albuterol 2.5mg/3ml Neb Ud) 2.5 mg HHN Q6HRT [facility] Stop: 11/29/17 12:59 Amlodipine Besylate (Norvasc) 10 mg PO DAILY [facility] Stop: 11/28/17 08:59 Last Admin: 10/01/17 09:32 Dose: 10 mg Ascorbic Acid (Vitamin C) 500 mg PO DAILY [facility] Stop: 11/27/17 08:59 Last Admin: 10/01/17 09:32 Dose: 500 mg Aspirin (Ecotrin) 81 mg PO DAILY [facility] Stop: 11/27/17 08:59 Last Admin: 10/01/17 09:32 Dose: 81 mg Budesonide (Pulmicort) 0.5 mg HHN BIDRT [facility] Stop: 11/29/17 12:59 Carbidopa/Levodopa (Sinemet 25mg-100 Mg) 2 tab PO QID [facility] Stop: 11/27/17 08:59 Last Admin: 09/30/17 22:04 Dose: 2 tab Carvedilol (Coreg) 25 mg PO BID [facility] Stop: 11/27/17 08:59 Last Admin: 10/01/17 09:30 Dose: 25 mg Clopidogrel Bisulfate (Plavix) 75 mg PO DAILY [facility] Stop: 11/27/17 08:59 Last Admin: 10/01/17 09:52 Dose: 75 mg Docusate Sodium (Colace) 100 mg PO BID PRN PRN Reason: BOWEL MNGT Stop: 11/27/17 00:06 Famotidine (Pepcid) 20 mg PO DAILY [facility] Stop: 11/27/17 08:59 Last Admin: 10/01/17 09:52 Dose: 20 mg Heparin Sodium (Porcine) (Heparin) 5,000 units SUBQ Q12HR [facility] Stop: 11/27/17 08:59 Last Admin: 10/01/17 09:52 Dose: 5,000 units Meropenem 500 mg/ Sodium (Chloride) 50 mls @ 100 mls/hr IV Q12H [facility] Stop: 11/29/17 17:59 Last Infusion: 10/01/17 06:38 Dose: Infused Insulin Aspart (Novolog) 0 units SUBQ ACHS [facility] PRN Reason: Protocol Stop: 11/27/17 07:29 Last Admin: 10/01/17 06:37 Dose: Not Given Lactobacillus Rhamnosus (Culturelle) 1 each PO DAILY [facility] Stop: 11/27/17 15:59 Last Admin: 09/30/17 08:46 Dose: 1 each Levetiracetam (Keppra) 500 mg PO BID [facility] Stop: 11/27/17 08:59 Last Admin: 10/01/17 09:52 Dose: 500 mg Lorazepam (Ativan) 0.5 mg PO Q6H PRN; Protocol PRN Reason: Anxiety Stop: 11/27/17 00:06 Last Admin: 09/29/17 13:54 Dose: 0.5 mg Miscellaneous (Probiotic Screen) 1 ea [facility] PRN PRN PRN Reason: PROTOCOL Stop: 11/27/17 15:42 Polyethylene Glycol (Miralax) 17 gm PO DAILY [facility] Stop: 11/27/17 08:59 Last Admin: 10/01/17 09:52 Dose: 17 gm Simvastatin (Zocor) 40 mg PO HS [facility] Stop: 11/27/17 20:59 Last Admin: 09/30/17 22:06 Dose: Not Given General: weak, alert HEENT: NC/AT, PERRLA Neck: Supple Lungs: CTAB Cardiovascular: RRR, Normal S1, Normal S2, without murmur Abdomen: soft, non-tender, non-distended, positive bowel sound Neurological: alert Internal Medicine Assmt/Plan - Assessment Assessment: ACUTE UTI ACUTE PELVIC PAIN HTN OSTEOPOROSIS CAD HYPONATREMIA [place]SONS - Plan Plan: dc planning in am continue ivabx pain mgmt ivf for hydration am labs continue current plan of care
--- NOTE | 2017-10-01 11:26 | Internal Medicine Prog Note ---
Internal Medicine Subjective - Subjective Service Date: 10/01/17 (manisha vora [id number]) Patient is:: awake, verbal Per staff patient has:: tolerating meds Internal Medicine Objective - Results Result Diagrams: 10/01/17 05:45 10/01/17 05:45 Recent Labs: Laboratory Last Values WBC 7.4 Th/cmm (4.8-10.8) 10/01/17 05:45 RBC 3.45 Mil/cmm (3.80-5.20) L 10/01/17 05:45 Hgb 9.8 gm/dL (12-16) L 10/01/17 05:45 Hct 29.8 % (41.0-60) L 10/01/17 05:45 MCV 86.6 fl (81-100) 10/01/17 05:45 MCH 28.5 pg (27.0-31.0) 10/01/17 05:45 MCHC Differential 32.9 pg (28.0-36.0) 10/01/17 05:45 RDW 15.9 % (11.5-20.0) 10/01/17 05:45 Plt Count 251 Th/cmm (150-400) 10/01/17 05:45 MPV 8.6 fl 10/01/17 05:45 Neutrophils % 66.0 % (40.0-80.0) 10/01/17 05:45 Lymphocytes % 20.7 % (20.0-50.0) 10/01/17 05:45 Monocytes % 9.2 % (2.0-10.0) 10/01/17 05:45 Eosinophils % 3.8 % (0.0-5.0) 10/01/17 05:45 Basophils % 0.3 % (0.0-2.0) 10/01/17 05:45 Sodium 133 mEq/L (136-145) L 10/01/17 05:45 Potassium 4.1 mEq/L (3.5-5.1) 10/01/17 05:45 Chloride 105 mEq/L (98-107) 10/01/17 05:45 Carbon Dioxide 21.3 mEq/L (21.0-31.0) 10/01/17 05:45 Anion Gap 10.8 (7.0-16.0) 10/01/17 05:45 BUN 36 mg/dL (7-25) H 10/01/17 05:45 Creatinine 1.4 mg/dL (0.6-1.2) H 10/01/17 05:45 Est GFR ( Amer) TNP 10/01/17 05:45 Est GFR (Non-Af Amer) TNP 10/01/17 05:45 BUN/Creatinine Ratio 25.7 10/01/17 05:45 Glucose 152 mg/dL (70-105) H 10/01/17 05:45 POC Glucose 149 MG/DL (70 - 105) H 10/01/17 06:25 Whole Bld Lactic Acid 1.11 mmol/L (0.60-1.99) 09/27/17 22:57 Calcium 8.2 mg/dL (8.6-10.3) L 10/01/17 05:45 Total Bilirubin 0.3 mg/dL (0.3-1.0) 09/27/17 22:57 AST 8 U/L (13-39) L 09/27/17 22:57 ALT < 3 U/L (7-52) L 09/27/17 22:57 Alkaline Phosphatase 100 U/L (34-104) 09/27/17 22:57 Total Protein 6.7 gm/dL (6.0-8.3) 09/27/17 22:57 Albumin 3.4 gm/dL (3.7-5.3) L 09/27/17 22:57 Globulin 3.3 gm/dL 09/27/17 22:57 Albumin/Globulin Ratio 1.0 (1.0-1.8) 09/27/17 22:57 Urine Source CATH 09/27/17 22:15 Urine Color YELLOW 09/27/17 22:15 Urine Clarity HAZY (CLEAR) 09/27/17 22:15 Urine pH 6.0 (4.6 - 8.0) 09/27/17 22:15 Ur Specific [place] 1.020 (1.005-1.030) 09/27/17 22:15 Urine Protein 100 mg/dL (NEGATIVE) H 09/27/17 22:15 Urine Glucose (UA) NEGATIVE mg/dL (NEGATIVE) 09/27/17 22:15 Urine Ketones NEGATIVE mg/dL (NEGATIVE) 09/27/17 22:15 Urine Blood NEGATIVE (NEGATIVE) 09/27/17 22:15 Urine Nitrate POSITIVE (NEGATIVE) H 09/27/17 22:15 Urine Bilirubin NEGATIVE (NEGATIVE) 09/27/17 22:15 Urine Urobilinogen 0.2 E.U./dL (0.2 - 1.0) 09/27/17 22:15 Ur Leukocyte Esterase NEGATIVE (NEGATIVE) 09/27/17 22:15 Urine RBC 0-1 /hpf (0-5) 09/27/17 22:15 Urine WBC 2-5 /hpf (0-5) 09/27/17 22:15 Ur Epithelial Cells FEW /lpf (FEW) 09/27/17 22:15 Amorphous Sediment MODERATE URATES (NONE SEEN) 09/27/17 22:15 Urine Bacteria MANY /hpf (NONE SEEN) 09/27/17 22:15 - Physical Exam Vitals and I&O: Vital Signs Temp 98 F 10/01/17 04:00 Pulse 63 10/01/17 09:32 Resp 19 10/01/17 04:00 BP 129/69 10/01/17 09:32 Pulse Ox 97 10/01/17 04:00 Intake & Output 09/30/17 10/01/17 10/01/17 18:59 06:59 18:59 Intake Total 850 200 Balance 850 200 Weight (lbs) 129 lb 4 oz 130 lb Intake: Intake, IV Amount 50 50 Meropenem 500 mg In 50 50 Sodium Chloride 0.9% 50 ml @ 100 mls/hr IV Q12H [facility] Rx#:[id number] Oral 800 150 Other: # Voids 4 2 # Bowel Movements 0 0 Active Medications: Current Medications Acetaminophen (Tylenol) 650 mg PO Q4HR PRN PRN Reason: Fever > 101 Stop: 11/27/17 00:06 Al Hydrox/Mg Hydrox/Simethicone (Maalox) 30 ml PO Q6H PRN PRN Reason: Dyspepsia Stop: 11/27/17 00:08 Albuterol Sulfate (Albuterol 2.5mg/3ml Neb Ud) 2.5 mg HHN Q2HRT PRN PRN Reason: Shortness of Breath or Wheeze Stop: 11/27/17 00:08 Albuterol Sulfate (Albuterol 2.5mg/3ml Neb Ud) 2.5 mg HHN Q6HRT [facility] Stop: 11/29/17 12:59 Amlodipine Besylate (Norvasc) 10 mg PO DAILY [facility] Stop: 11/28/17 08:59 Last Admin: 10/01/17 09:32 Dose: 10 mg Ascorbic Acid (Vitamin C) 500 mg PO DAILY [facility] Stop: 11/27/17 08:59 Last Admin: 10/01/17 09:32 Dose: 500 mg Aspirin (Ecotrin) 81 mg PO DAILY [facility] Stop: 11/27/17 08:59 Last Admin: 10/01/17 09:32 Dose: 81 mg Budesonide (Pulmicort) 0.5 mg HHN BIDRT [facility] Stop: 11/29/17 12:59 Carbidopa/Levodopa (Sinemet 25mg-100 Mg) 2 tab PO QID [facility] Stop: 11/27/17 08:59 Last Admin: 09/30/17 22:04 Dose: 2 tab Carvedilol (Coreg) 25 mg PO BID [facility] Stop: 11/27/17 08:59 Last Admin: 10/01/17 09:30 Dose: 25 mg Clopidogrel Bisulfate (Plavix) 75 mg PO DAILY [facility] Stop: 11/27/17 08:59 Last Admin: 10/01/17 09:52 Dose: 75 mg Docusate Sodium (Colace) 100 mg PO BID PRN PRN Reason: BOWEL MNGT Stop: 11/27/17 00:06 Famotidine (Pepcid) 20 mg PO DAILY [facility] Stop: 11/27/17 08:59 Last Admin: 10/01/17 09:52 Dose: 20 mg Heparin Sodium (Porcine) (Heparin) 5,000 units SUBQ Q12HR [facility] Stop: 11/27/17 08:59 Last Admin: 10/01/17 09:52 Dose: 5,000 units Meropenem 500 mg/ Sodium (Chloride) 50 mls @ 100 mls/hr IV Q12H [facility] Stop: 11/29/17 17:59 Last Infusion: 10/01/17 06:38 Dose: Infused Insulin Aspart (Novolog) 0 units SUBQ ACHS [facility] PRN Reason: Protocol Stop: 11/27/17 07:29 Last Admin: 10/01/17 06:37 Dose: Not Given Lactobacillus Rhamnosus (Culturelle) 1 each PO DAILY [facility] Stop: 11/27/17 15:59 Last Admin: 09/30/17 08:46 Dose: 1 each Levetiracetam (Keppra) 500 mg PO BID [facility] Stop: 11/27/17 08:59 Last Admin: 10/01/17 09:52 Dose: 500 mg Lorazepam (Ativan) 0.5 mg PO Q6H PRN; Protocol PRN Reason: Anxiety Stop: 11/27/17 00:06 Last Admin: 09/29/17 13:54 Dose: 0.5 mg Miscellaneous (Probiotic Screen) 1 ea MC PRN PRN PRN Reason: PROTOCOL Stop: 11/27/17 15:42 Polyethylene Glycol (Miralax) 17 gm PO DAILY NISREEN Stop: 11/27/17 08:59 Last Admin: 10/01/17 09:52 Dose: 17 gm Simvastatin (Zocor) 40 mg PO HS NISREEN Stop: 11/27/17 20:59 Last Admin: 09/30/17 22:06 Dose: Not Given General: weak, alert HEENT: NC/AT, PERRLA Neck: Supple Lungs: CTAB Cardiovascular: RRR, Normal S1, Normal S2, without murmur Abdomen: soft, non-tender, non-distended, positive bowel sound Neurological: alert Internal Medicine Assmt/Plan - Assessment Assessment: ACUTE UTI ACUTE PELVIC PAIN HTN OSTEOPOROSIS CAD HYPONATREMIA PARKINSONS
--- NOTE | 2017-10-01 14:30 | Diagnostic Imaging Report ---
Portable chest x-ray HISTORY: Cough The heart appears somewhat enlarged. Atherosclerotic calcification seen in the aorta. No acute focal pulmonary parenchymal processes. Degenerative changes seen within the spine. IMPRESSION: 1. No acute abnormalities 2. Cardiomegaly with atherosclerotic vascular changes
--- NOTE | 2017-10-01 15:10 | Discharge Summary ---
DATE OF DISCHARGE: 10/01/2017 DICTATED FOR: Dr. Hardeep Flores DISCHARGE DIAGNOSES: Acute UTI, ESBL urine, acute pelvic pain, diabetes, hypertension, CAD, osteoporosis, Parkinson, acute renal insufficiency. HISTORY OF PRESENT ILLNESS: An 82-year-old female, a intermediate resident, who was brought to [facility] for persistent dysuria associated with lower abdominal discomfort. The patient did not have any fever at the intermediate. Also the patient was diagnosed with UTI 12 days ago. The patient just finished course of nitrofurantoin. Still despite finishing the course of antibiotics, the patient still experiences dysuria. PHYSICAL EXAMINATION: GENERAL: An elderly female, awake, alert, no apparent distress. VITAL SIGNS: Stable. HEENT: Head normocephalic, atraumatic. NECK: Supple. No mass. LUNGS: Clear bilaterally. HEART: Regular rhythm. ABDOMEN: Soft, nontender. HOSPITAL COURSE: During the hospital stay, the patient was admitted to the med/surg unit. The patient was kept on IV antibiotics of Merrem. The patient also had a chest x-ray done upon admission and the impression is chronic lung changes with no focal consolidation identified. A renal and pelvic ultrasound was also done. Renal ultrasound shows bilateral renal cysts, nonobstructing 6 mm calcification, right kidney. The patient did not have any fevers during the hospital stay. For this reason, the patient is stable for discharge. The patient to be discharged with amikacin per pharmacy to dose for 7 days. CONDITION UPON DISCHARGE: Fair. DISPOSITION: Myai Mendez JOB# [id number]
== END 2017-10-01 15:43 | disposition home or self-care (01) | DRG 683 ==
LOC: ER 19:42 → MSI 09-28 00:05
PROVIDERS: ADMIT Internal Medicine; ATTEND Internal Medicine
DX: N17.9 Acute kidney failure, unspecified (principal); N39.0 Urinary tract infection, site not specified; G20 Parkinson's disease; E87.1 Hypo-osmolality and hyponatremia; E11.9 Type 2 diabetes mellitus without complications; N28.1 Cyst of kidney, acquired; F03.90 Unspecified dementia, unspecified severity, without behavioral disturbance, psychotic disturbance, mood disturbance, and anxiety; I25.10 Atherosclerotic heart disease of native coronary artery without angina pectoris; N28.89 Other specified disorders of kidney and ureter; M81.0 Age-related osteoporosis without current pathological fracture; R10.2 Pelvic and perineal pain; Z16.12 Extended spectrum beta lactamase (ESBL) resistance; I12.9 Hypertensive chronic kidney disease with stage 1 through stage 4 chronic kidney disease, or unspecified chronic kidney disease; N18.9 Chronic kidney disease, unspecified; E86.0 Dehydration
CPT/HCPCS: 36415-UA; 71010-TC; 76770-TC; 76856-TC; 80048-TC; 80053-TC; 81001-TC; 82948-90; 83605; 85025-TC; 93005; 94760; J0692; J1644; J1815; J2185; Z7610